=== PATIENT | male | born 1975 | race Caucasian/White ===

== ENCOUNTER 2019-07-25 06:30 | Emergency (ER) | payer OTHER ==
[2019-07-25 06:52] VITALS: TEMP 97.8; BMI 25.1
[2019-07-25] MEDS ORDERED: SODIUM CHLORIDE 0.9% 500 ML INFUS.BAG IV ONE (07:23)
[2019-07-25] MEDS ORDERED: ACETAMINOPHEN 1000 MG/100 ML VIAL (NON FORMULARY) IVPB ONE (07:36)
[2019-07-25] MEDS ORDERED: ACETAMINOPHEN INJECTION 100 ML IVPB ONE (07:39)
--- NOTE | 2019-07-25 07:39 | PDOC ---
History of Present Illness - General Chief Complaint: Pain Stated Complaint: ABD PAIN Time Seen by Provider: 07/25/19 07:08 - History of Present Illness Initial Comments: 07/27/19 08:25 43M PMH HLD c/o 2 days of LLQ / L flank pain w/ a change in urine color (states dark orange) and one episode of vomiting prior to being seen. Radiation of the flanks; constant, severe pain. Denies nausea, f/c. Denies dysuria, PO intolerance, abdpain, h/o abdsurg, sickcon, recentabx. no h/o similar pain or of renal stones. [facility] PCP Neftali Potts Past History - Past Medical History Allergies/Adverse Reactions: Allergies Allergy/AdvReac Type Severity Reaction Status Date / Time No Known Allergies Allergy Verified 10/18/14 05:16 Home Medications: Ambulatory Orders Ondansetron [Zofran Odt -] 4 mg SL BID #14 od.tablet 10/18/14 Ibuprofen 600 mg PO Q6H PRN #20 tablet 07/25/19 Ondansetron [Zofran *Odt*] 4 mg SL TID PRN #9 od.tablet 07/25/19 Tamsulosin HCl [Flomax] 0.4 mg PO HS #20 capsule 07/25/19 oxyCODONE HCL [Roxicodone -] 10 mg PO Q6H PRN #12 tablet MDD 4 07/25/19 COPD: No Other medical history: High cholesterol - Immunization History Immunization Up to Date: Yes - Psycho Social/Smoking Cessation Hx Smoking History: Never smoked Hx Alcohol Use: No Drug/Substance Use Hx: No Substance Use Type: None Review of Systems - Review of Systems Comments:: 07/27/19 08:25 CONSTITUTIONAL: Denies F / C HEENT: Denies headache RESP: Denies SOB CARD: Denies chest pain, palpitations GI: Endorses LLQ / Left flank pain. Endorses vomiting x 1. Denies N / D, bloody stool, inability to tolerate PO : Endorses dark orange color to urine. Denies dysuria, frequency SKIN: Denies rashes NEURO: Denies numbness, tingling, weakness MSK: Denies back pain *Physical Exam - Vital Signs Last Vital Signs Temp Pulse Resp BP Pulse Ox 97.8 F 95 H 20 131/101 H 100 07/25/19 06:45 07/25/19 06:45 07/25/19 06:45 07/25/19 06:45 07/25/19 06:45 - Physical Exam 07/27/19 08:25 GEN: Restless in moderate distress 2/2 pain. AAOx3 HEENT: NC/AT, EOMI, PERRLA. No facial asymmetry. Moist mucous membranes. Normal voice. Supple neck w/ FROM. CV: S1/S2, RRR, no m/r/g LUNG: CTAB, no wheezes, crackles, rales, rhonchi. GI: soft, ndnt, +BS, no guarding, no rebound. No masses. Neg CVAT b/l. : No scrotal or penile swelling. No TTP. No hernias or testicular masses palpated. Patient is circumcised. No bleeding or discharge at meatus. EXTREMITIES: No obvious deformities of all extremities. SKIN: warm, dry, normal turgor PSYCH: normal mood and affect NEURO: Moving all extremities well. Ambulates w/ normal gait. ED Treatment Course - LABORATORY CBC & Chemistry Diagram: 07/25/19 07:36 07/25/19 07:36 - RADIOLOGY Radiology Studies Ordered: Category Date Time Status SPIRAL- RENAL-STONE CT [CT] Stat CT Scan 07/25/19 07:36 Ordered Medical Decision Making - Medical Decision Making 07/25/19 07:37 43M p/w 2 days of LLQ / L flank pain w/o f/c. Pt noticed change in urine color. No CVAT, no TTP abd, restless in pain. DDx - renal stone likely; considering UTI. Unlikely pyelo. Unlikely mass. 07/25/19 09:05 Pt feeling much better s/p tylenol and hydration labs reviewed No signs infection on UA; 3+ blood awaiting CT report dispo pending 07/25/19 09:[address] IMPRESSION: There is a 7 x 8 mm calcification within the proximal left ureter, just distal to the UPJ consistent with a partially obstructing calculus. There is a mild degree of hydronephrosis associated with this stone. urology c/s 07/25/19 10:10 d/w Dr. Esequiel Brower dc home w/ pain meds and f/u in AM DC'd pt home as above; discussed that he can use any urologist if he will not be in the area, discussed return precautions. urine strainer provided. Discharge - Discharge Information Problems reviewed: Yes Clinical Impression/Diagnosis: Calculus of proximal left ureter Hydronephrosis Qualifiers: Hydronephrosis type: unspecified Qualified Code(s): N13.30 - Unspecified hydronephrosis Condition: Improved Disposition: HOME - Admission No - Additional Discharge Information Prescriptions: Ibuprofen 600 mg PO Q6H PRN #20 tablet PRN Reason: Pain Ondansetron [Zofran *Odt*] 4 mg SL TID PRN #9 od.tablet PRN Reason: nausea vomiting oxyCODONE HCL [Roxicodone -] 10 mg PO Q6H PRN #12 tablet MDD 4 PRN Reason: Severe Pain Tamsulosin HCl [Flomax] 0.4 mg PO HS #20 capsule - Follow up/Referral Referrals: Denny Jesus MD [Staff Physician] - Jonny Royal MD [Staff Physician] - Perez Cook MD., MD [Staff Physician] - Lam Ceron MD [Staff Physician] - Joey Potts RES [Primary Care Provider] - - Patient Discharge Instructions Patient Printed Discharge Instructions: DI for Kidney Stones Additional Instructions: Your CT results were significant for obstructed ureteral/kidney stone at 7x8 mm at the proximal collecting system junction and swelling of collecting system, Drink plenty of water/fluids, avoid caffeine or alcohol Strain all urine for the next 1 week and save any stone for analysis Ibuprofen/naproxen/acetaminophen as needed for [id number] pain. Use Motrin (also called Ibuprofen or Advil) 400 mg every 6 hours as needed for pain. If you have any stomach discomfort while taking Motrin, you can use TUMS to help. Oxycodone every 6 hours as needed for severe pain; Please do not drive or operate heavy machinery while on this medication because it can impair your judgement. This is a very addictive medication, do not take it unless you absolutely have to. this medication can cause drowsiness and sleepiness and constipation, so only take as needed zofran every 8 hours as needed for nausea Return to ER if you experience persistent pain/vomiting/fever/dehydration, difficulty urinating or inability to tolerate oral intake. Follow-up with your primary doctor within the next 2-3 days. Urologist follow up this week, referral given as well - Dr Esequiel Brower as well as additional urologists for appropriate followup of your stone. (we will give you a list of urologists, but make sure they accept your insurance). Please bring your labs and imaging with you to your appointment. Dr. Esequiel Brower would like you to follow up on 07/26/19 in his office. - Post Discharge Activity
--- NOTE | 2019-07-25 07:47 | PDOC ---
Attending Attestation - Resident Resident Name: JeremieGabriel - ED Attending Attestation I have performed the following: I have examined & evaluated the patient, The case was reviewed & discussed with the resident, I agree w/resident's findings & plan - HPI HPI: 07/25/19 07:46 43 YOM with h/o HLD presenting with LLQ/flank pain x 2 days. pt states sx have been vaguely present since yesterday morning, more an ache at that time. this morning at 5AM he woke up with sharp LLQ pain radiating to his flank, a/w nausea /vomiting and urinary changes. no h/o similar sx. no family history. no meds taken. no fever or chills, diarrhea or vomiting, dysuria, urgency or frequency, discharge. no testicular or scrotal changes. 07/25/19 08:12 - Physicial Exam PE: 07/25/19 07:46 Agree with the resident's HPI and PE as documented in the electronic medical record. NAD, well appearing, EOMI, PERRL, nl conjunctiva, anicteric; neck supple. lungs clear, RRR, abdomen soft nontender. no rebound, guarding. Back nontender. ARREOLA x4, no focal neuro deficits. No peripheral edema. normal color for ethnicity , WWP. - Medical Decision Making 07/25/19 07:47 Vital Signs Temp Pulse Resp BP Pulse Ox 97.8 F 95 H 20 131/101 H 100 07/25/19 06:45 07/25/19 06:45 07/25/19 06:45 07/25/19 06:45 07/25/19 06:45 Vital signs are within normal limits, hypertensive likely due to the pain, no fevers no tachycardia. Differential diagnosis includes kidney stone, ureteral colic/obstructed stone, UTI, pyelonephritis, anemia, electrolyte/metabolic derangements, infection, mass , diverticulitis. Symptoms are most consistent with passage of ureteral stone, due to the first time presentation will obtain basic labs, urinalysis CT spiral to evaluate for location/size and extent of stone. Patient was given analgesia IV fluids and Tylenol. Currently symptom-free, no abdominal tenderness and no CVA tenderness testicular exam is also within normal limits and denies any urinary changes aside from the orange discoloration when he urinated this morning 07/25/19 08:26 Laboratory results are within normal limits including creatinine and electrolytes, urinalysis reveals copious RBCs which is consistent with hematuria from ureteral stone 07/25/19 09:49 VS improved on recheck. Clinically the patient presents with symptomatic ureterolithiasis (kidney stones ). IV pain medications, antiemetics, and IV fluids were given. A CT Abdomen/ Pelvis was obtained for concern for a possible obstructing kidney stone and to rule out other pathologic conditions. The CT confirmed revealed a stone at left prox junction ~7x8mm. The patient's labs were wnl as above. With pain medication the patient improved significantly. The patient is referred to the on -call urologist Dr Infante for follow up, D/W accounting consultant, can followup in the morning; pt states he has a flight out to [place] later today, advised he should f/u urology to manage his large ureteral stone; several providers given in addition to allow for timely followup and management and is discharged with oral narcotics for pain control, Flomax, antiemetics, and given the following return precautions: Fever > 100.5, pain not controlled with narcotics, worsening pain, dehydration, vomiting or any other concerns and to strain the urine. NSAIDS/tylenol for mild to moderate pain, rx oxycodone PRN for more severe pain , side effect profile reviewed. zofran for nausea, adequate hydration and oral fluids and air conditioning in hot weather. urine strainer to catch urine. 07/25/19 09:57 07/25/19 09:59 Discharge - Discharge Information Problems reviewed: Yes Clinical Impression/Diagnosis: Calculus of proximal left ureter, Hydronephrosis Condition: Improved - Admission No - Additional Discharge Information Prescriptions: Ibuprofen 600 mg PO Q6H PRN #20 tablet PRN Reason: Pain Ondansetron [Zofran *Odt*] 4 mg SL TID PRN #9 od.tablet PRN Reason: nausea vomiting oxyCODONE HCL [Roxicodone -] 10 mg PO Q6H PRN #12 tablet MDD 4 PRN Reason: Severe Pain Tamsulosin HCl [Flomax] 0.4 mg PO HS #20 capsule - Follow up/Referral Referrals: Joey Potts RES [Primary Care Provider] - Denny Jesus MD [Staff Physician] - Lam Ceron MD [Staff Physician] - Jonny Royal MD [Staff Physician] - Perez Cook MD., MD [Staff Physician] - - Patient Discharge Instructions Patient Printed Discharge Instructions: DI for Kidney Stones Additional Instructions: Your CT results were significant for obstructed ureteral/kidney stone at 7x8 mm at the proximal collecting system junction and swelling of collecting system, Drink plenty of water/fluids, avoid caffeine or alcohol Strain all urine for the next 1 week and save any stone for analysis Ibuprofen/naproxen/acetaminophen as needed for [id number] pain. Use Motrin (also called Ibuprofen or Advil) 400 mg every 6 hours as needed for pain. If you have any stomach discomfort while taking Motrin, you can use TUMS to help. Oxycodone every 6 hours as needed for severe pain; Please do not drive or operate heavy machinery while on this medication because it can impair your judgement. This is a very addictive medication, do not take it unless you absolutely have to. this medication can cause drowsiness and sleepiness and constipation, so only take as needed zofran every 8 hours as needed for nausea Return to ER if you experience persistent pain/vomiting/fever/dehydration, difficulty urinating or inability to tolerate oral intake. Follow-up with your primary doctor within the next 2-3 days. Urologist follow up this week, referral given as well - Dr Esequiel Brower as well as additional urologists for appropriate followup of your stone. (we will give you a list of urologists, but make sure they accept your insurance). Please bring your labs and imaging with you to your appointment. - Post Discharge Activity
[2019-07-25 08:03] LABS: BASO % 0.8 % (0-2.0); EOS % 0.8 % (0-4.5); HEMATOCRIT 40.6 % (35.4-49); HEMOGLOBIN 13.7 GM/dL (11.7-16.9); LYMPH % 12.4 % (8-40); MCHC 33.7 g/dl (32.0-35.9); MEAN CELL VOLUME 89.2 fl (80-96); MEAN PLT VOLUME 7.9 fl (7.5-11.1); MONO % 6.4 % (3.8-10.2); NEUT % 79.6 % (42.8-82.8); PLATELET COUNT 315 K/MM3 (134-434); RBC 4.56 M/mm3 (4.00-5.60); RDW 13.8 % (11.9-15.9); WHITE BLOOD COUNT 7.4 K/mm3 (4.0-10.0)
[2019-07-25 08:18] LABS: EPI CELLS 0.5 /HPF (0-5/HPF); HYALINE CASTS 0 /lpf (0-8); URINE APPEARANCE CLEAR; URINE BACTERIA 0.8 /hpf (NEGATIVE); URINE BILIRUBIN NEGATIVE (NEGATIVE); URINE COLOR YELLOW; URINE GLUCOSE (UA) NEGATIVE (NEGATIVE); URINE KETONE NEGATIVE (NEGATIVE); URINE LEUK ESTERASE NEGATIVE (NEGATIVE); URINE NITRITE NEGATIVE (NEGATIVE); URINE PROTEIN NEGATIVE (NEGATIVE); URINE RBC 234 /hpf (0-4); URINE UROBILINOGEN 0.2 mg/dL (0.2-1.0); URINE WBC 1 /hpf (0-5)
[2019-07-25 08:22] LABS: ALBUMIN 4.1 g/dl (3.4-5.0); BILIRUBIN,TOTAL 0.3 mg/dL (0.2-1); BLOOD UREA NITROGEN 16.2 mg/dL (7-18); CALCIUM 10.1 mg/dL (8.5-10.1); CREATININE 1.1 mg/dL (0.55-1.3); POTASSIUM 4.5 mmol/L (3.5-5.1); TOT PROT 7.5 g/dl (6.4-8.2)
[2019-07-25] MEDS ORDERED: KETOROLAC TROMETHAMINE 30 MG/1 ML VIAL IVPUSH ONE (08:32)
[2019-07-25] MEDS ORDERED: KETOROLAC TROMETHAMINE 30 MG/1 ML VIAL ONE (09:01)
[2019-07-25 09:14] VITALS: BP 133/74; PULSE 86
== END 2019-07-25 10:21 | disposition home or self-care (01) ==
LOC: JER 06:30
PROC: 3E033NZ Introduction of Analgesics, Hypnotics, Sedatives into Peripheral Vein, Percutaneous Approach (ICD-10-PCS; principal; 2019-07-25)
PROC: 3E0333Z Introduction of Anti-inflammatory into Peripheral Vein, Percutaneous Approach (ICD-10-PCS; 2019-07-25)
DX: N13.2 Hydronephrosis with renal and ureteral calculous obstruction (principal)
CPT/HCPCS: 36415; 74176-TC; 80053; 81003; 85025; 87086; 99283-25; J0131

== ENCOUNTER 2023-12-31 16:32 | Inpatient (IN) | payer OTHER ==
[2023-12-31] MEDS: SODIUM CHLORIDE 0.9% 1000 ML INFUS.BAG IV ONE (17:31)
[2023-12-31 17:36] LABS: VENOUS BASE EXCESS -16.5 mmol/L (-2-2); VENOUS O2 SATURATION 29.1 % (70-80); VENOUS PCO2 32.7 mmHg (38-52)
[2023-12-31 17:37] LABS: BASO % 0.9 % (0-2.0); HEMATOCRIT 48.3 % (35.4-49); HEMOGLOBIN 16.3 GM/dL (11.7-16.9); LYMPH % 9.4 % (8-40); MCH 30.3 pg (25.7-33.7); MCHC 33.8 g/dl (32.0-35.9); MEAN CELL VOLUME 89.5 fl (80-96); MEAN PLT VOLUME 9.2 fl (7.5-11.1); MONO % 7.3 % (3.8-10.2); NEUT % 82.4 % (42.8-82.8); PLATELET COUNT 314 10^3/uL (134-434); RDW 13.6 % (11.9-15.9); VENOUS PH 7.151 (7.310-7.410)
[2023-12-31 17:45] LABS: INR 0.9 (0.83-1.09); PROTHROMBIN TIME (PATIENT) 10.2 SEC (9.7-13.0)
[2023-12-31 17:54] LABS: CHLORIDE 101 mmol/L (98-107); POTASSIUM 4.9 mmol/L (3.5-5.1); SODIUM 131 mmol/L (136-145)
[2023-12-31 17:57] LABS: MAGNESIUM 2.4 mg/dL (1.8-2.4)
[2023-12-31 17:59] LABS: ALBUMIN 4.5 g/dl (3.4-5.0); ANION GAP 18 mmol/L (4-13); BLOOD UREA NITROGEN 20.5 mg/dL (7-18); CALCIUM 9.7 mg/dL (8.5-10.1); CO2 13 mmol/L (21-32)
[2023-12-31 18:00] LABS: CREATININE 1.6 mg/dL (0.55-1.3); SGOT/AST 40 U/L (15-37); SGPT/ALT 89 U/L (13-61)
[2023-12-31 18:01] LABS: TOT PROT 8.6 g/dl (6.4-8.2)
[2023-12-31 18:03] LABS: BILIRUBIN,TOTAL 0.7 mg/dL (0.2-1); CHOLESTEROL 390 mg/dL (50-200); LDL CHOLESTEROL (ONLY SJRH) 288 mg/dL (5-100)
[2023-12-31 18:04] LABS: ALK PHOS 180 U/L (45-117); HDL CHOLESTEROL 38 mg/dL (40-60)
[2023-12-31 18:20] LABS: GLUCOSE,RANDOM 432 mg/dL (74-106)
[2023-12-31] MEDS: SODIUM CHLORIDE 1,000 ML IV STA (18:28)
[2023-12-31] MEDS ORDERED: INSULIN REGULAR HUMAN 100 UNITS/ML *VIAL ONE (19:18)
[2023-12-31] MEDS: INSULIN REGULAR 100 UNITS in SODIUM CHLORIDE 99 ML IVPB SCH (19:23)
[2023-12-31] MEDS: INSULIN REGULAR HUMAN 100 UNITS/ML *VIAL* (FOR IVP) IVPUSH ONE (19:32)
[2023-12-31 19:45] LABS: EPI CELLS 3 /uL (0-25.1); HYALINE CASTS 1 /uL (0-3.1); PH,URINE 5.5 (5.0-8.0); URINE APPEARANCE CLEAR; URINE BACTERIA 1 /uL (0-1359); URINE BILIRUBIN NEGATIVE (NEGATIVE); URINE COLOR YELLOW; URINE GLUCOSE (UA) 3+ (NEGATIVE); URINE KETONE 4+ (NEGATIVE); URINE LEUK ESTERASE NEGATIVE (NEGATIVE); URINE NITRITE NEGATIVE (NEGATIVE); URINE PROTEIN TRACE (NEGATIVE); URINE RBC 26 /uL (0-23.9); URINE UROBILINOGEN 0.2 mg/dL (0.2-1.0); URINE WBC 4 /uL (0-25.8)
[2023-12-31 21:41] LABS: POTASSIUM 4.1 mmol/L (3.5-5.1)
[2023-12-31 21:43] LABS: BLOOD UREA NITROGEN 17.1 mg/dL (7-18)
[2023-12-31 21:45] LABS: CREATININE 1.1 mg/dL (0.55-1.3)
[2023-12-31] MEDS: HEPARIN NA (PORCINE) 5,000 UNITS/ML 1ML VIAL SQ SCH (22:06)
[2023-12-31] MEDS: CHLORHEXIDINE GLUCONATE 4% CLEANSER FOR DECOLONIZATION TP SCH (22:07)
[2023-12-31] MEDS: MUPIROCIN 2% TOPICAL OINTMENT FOR DECOLONIZATION NS SCH (22:07)
[2023-12-31] MEDS: DEXTROSE 5%-NORMAL SALINE 1,000 ML IV SCH ×2 (22:07)
[2024-01-01 00:52] LABS: POTASSIUM 3.9 mmol/L (3.5-5.1)
[2024-01-01 00:55] LABS: BLOOD UREA NITROGEN 15.2 mg/dL (7-18)
[2024-01-01 01:00] LABS: BILIRUBIN,TOTAL 0.5 mg/dL (0.2-1)
[2024-01-01 01:07] LABS: ALBUMIN 3.2 g/dl (3.4-5.0); CALCIUM 7.7 mg/dL (8.5-10.1); TOT PROT 6.3 g/dl (6.4-8.2)
[2024-01-01] MEDS: INSULIN (LEVEMIR) 100 UNITS/ML UNITS SQ SCH (01:58)
[2024-01-01] MEDS: INSULIN ASPART SLIDING SCALE (NOVOLOG) 1 VIAL SQ SCH (06:09)
[2024-01-01 06:39] LABS: INR 0.91 (0.83-1.09); PROTHROMBIN TIME (PATIENT) 10.3 SEC (9.7-13.0)
[2024-01-01 06:53] LABS: HEMATOCRIT 36.3 % (35.4-49); HEMOGLOBIN 12.2 GM/dL (11.7-16.9); MCHC 33.5 g/dl (32.0-35.9); MEAN CELL VOLUME 89.5 fl (80-96); PLATELET COUNT 231 10^3/uL (134-434); RBC 4.05 M/mm3 (4.00-5.60); RDW 13.3 % (11.9-15.9); WHITE BLOOD COUNT 6.3 K/mm3 (4.0-10.0)
[2024-01-01 06:54] LABS: POTASSIUM 3.8 mmol/L (3.5-5.1)
[2024-01-01 07:11] LABS: ALBUMIN 3.1 g/dl (3.4-5.0); BLOOD UREA NITROGEN 11.1 mg/dL (7-18); CALCIUM 7.8 mg/dL (8.5-10.1); MAGNESIUM 2.1 mg/dL (1.8-2.4)
[2024-01-01 07:13] LABS: PHOSPHOROUS 1.9 mg/dL (2.5-4.9)
[2024-01-01 07:14] LABS: BILIRUBIN,TOTAL 0.6 mg/dL (0.2-1); TOT PROT 5.7 g/dl (6.4-8.2)
[2024-01-01] MEDS: INSULIN (LEVEMIR) 100 UNITS/ML UNITS SQ ONE (08:38)
[2024-01-01] MEDS: NAPH,MB-DB/K PH,MBDB POWDER PACKET PO ONE (08:39)
[2024-01-01] MEDS ORDERED: INSULIN (LEVEMIR) 100 UNITS/ML UNITS SQ ONE (08:43)
[2024-01-01] MEDS ORDERED: INSULIN (NOVOLOG) ASPART 100 UNITS/ML 10ML VIAL ONE ×2 (10:48→16:07)
[2024-01-01] MEDS: POTASSIUM PHOSPHATE 30 MM in SODIUM CHLORIDE 250 ML IVPB ONE (10:55)
[2024-01-01 15:19] VITALS: BP 117/74; PULSE 66; RESP 15; TEMP 98.5
[2024-01-01 17:23] VITALS: BMI 24.5
== END 2024-01-01 18:15 | disposition home or self-care (01) | DRG 639 ==
LOC: JER 16:32 → JERBED 18:14 → JICU 19:29
PROVIDERS: ADMIT Internal Medicine Pulmonary Disease; ATTEND Internal Medicine Pulmonary Disease
DX: E10.10 Type 1 diabetes mellitus with ketoacidosis without coma (principal); R63.4 Abnormal weight loss; Z68.24 Body mass index [BMI] 24.0-24.9, adult; R63.1 Polydipsia; E86.1 Hypovolemia; G47.33 Obstructive sleep apnea (adult) (pediatric); E86.0 Dehydration
CPT/HCPCS: 0241U-QW; 36415; 71046-TC-FY; 80048; 80053; 80061; 81003; 82010; 82803; 82962; 83036; 83690; 83735; 84100; 85025; 85027; 85610; 87086; 93005; 93010; 99291; J1644